=== PATIENT | male | born 1995 | race Caucasian/White ===

== ENCOUNTER 2020-04-20 19:09 | Emergency (ER) | payer OTHER ==
[2020-04-20] MEDS ORDERED: DIPHTH,PERTUSS(ACELL),TET 0.5 ML DISP.SYRIN IM ONE ×2 (19:21→19:55)
--- NOTE | 2020-04-20 19:27 | PDOC ---
Rapid Medical Evaluation Time Seen by Provider: 04/20/20 19:21 Medical Evaluation: 04/20/20 19:26 CC: sliced his 5th digit of rt hand, unknown last tdap, no other compliants Exam: rt 5th finger tip with lac FROM of finger Plan: FT Discharge Disposition - Diagnosis Finger laceration - Referrals - Patient Instructions - Post Discharge Activity
[2020-04-20 19:29] VITALS: BP 122/64; PULSE 78; TEMP 98.5; BMI 24.4
--- NOTE | 2020-04-20 19:54 | PDOC ---
History of Present Illness - General Chief Complaint: Injury Stated Complaint: FINGER LACERATION- RH Time Seen by Provider: 04/20/20 19:21 - History of Present Illness Initial Comments: 04/20/20 19:52 24-year-old male presents for evaluation of a laceration from a slicing machine which occurred last nightHe is not current on tetanus Past History - Medical History Allergies/Adverse Reactions: Allergies Allergy/AdvReac Type Severity Reaction Status Date / Time No Known Allergies Allergy Verified 04/20/20 19:26 COPD: No - Psycho-Social/Smoking History Smoking History: Never smoked - Substance Abuse Hx (Audit-C & DAST Scrn) How often the patient has a drink containing alcohol: Never Score: In Men: 4 or > Positive; In Women: 3 or > Positive: 0 Screen Result (Pos requires Nsg. Audit-10AR): Negative In the last yr the pt used illegal drug/Rx for NonMed reason: No Score: Yes response is considered Positive: 0 Screen Result (Positive result requires Nsg. DAST-10): Negative Review of Systems - Review of Systems Constitutional: No: Fever *Physical Exam - Vital Signs Last Vital Signs Temp Pulse Resp BP Pulse Ox 98.5 F 78 19 122/64 99 04/20/20 19:23 04/20/20 19:23 04/20/20 19:23 04/20/20 19:23 04/20/20 19:23 - Physical Exam 04/20/20 19:53 There is a small sudden subcentimeter laceration on the ulnar aspect of the tip of the left pinky edges are approximated and eschared over no gross sensorimotor deficits neurovascular intact Medical Decision Making - Medical Decision Making 04/20/20 19:53 Tetanus updated edges held down with a small Steri-Strip. Wound care with soap and water and left open to air avoiding ointments. Follow-up with orthopedic hand surgery. I have reviewed the pathophysiology with the patient. They are in agreement with the treatment plan all questions were answered to their satisfaction. Understanding for follow-up without fail was also conveyed to the patient. Again they are in agreement. Discharge - Discharge Information Problems reviewed: Yes Clinical Impression/Diagnosis: Finger laceration Condition: Stable Disposition: HOME - Admission No - Follow up/Referral Referrals: Newton Fernando MD [Staff Physician] - - Patient Discharge Instructions Additional Instructions: Return to the emergency room for further issues. Your tetanus was updated today. Tylenol and Motrin as directed for discomfort. Please keep the area clean and dry. You may wash it with soap and water and leave it open to air. Do not apply any ointment such as bacitracin or Neosporin. If you have to work you may cover the area with a dry sterile dressing such as a Band-Aid. Without fail follow-up with orthopedic hand surgery in 1 to 2 days for further evaluation and treatment options. - Post Discharge Activity
== END 2020-04-20 21:03 | disposition home or self-care (01) ==
LOC: JER 19:09 → JERFT 19:09
PROC: 3E0234Z Introduction of Serum, Toxoid and Vaccine into Muscle, Percutaneous Approach (ICD-10-PCS; principal; 2020-04-20)
DX: S61.217A Laceration without foreign body of left little finger without damage to nail, initial encounter (principal)
CPT/HCPCS: 90715; 99284-25

== ENCOUNTER 2023-05-10 05:45 | Emergency (ER) | payer OTHER ==
[2023-05-10 05:55] VITALS: BP 103/68; PULSE 79; RESP 20; TEMP 97.6; BMI 21.2
[2023-05-10] MEDS ORDERED: LIDOCAINE 4% PATCH TP ONE ×2 (06:23→06:30)
[2023-05-10] MEDS ORDERED: IBUPROFEN 400 MG TABLET (FP) PO ONE ×2 (06:23→06:29)
== END 2023-05-10 06:54 | disposition home or self-care (01) ==
LOC: JER 05:45
DX: M54.6 Pain in thoracic spine (principal); M54.2 Cervicalgia; V49.50XA Passenger injured in collision with unspecified motor vehicles in traffic accident, initial encounter; Y92.410 Unspecified street and highway as the place of occurrence of the external cause
CPT/HCPCS: 99283-25

== ENCOUNTER 2023-05-12 05:21 | Emergency (ER) | payer OTHER ==
[2023-05-12 05:40] VITALS: BP 121/80; PULSE 71; RESP 18; TEMP 98; BMI 22.8
[2023-05-12] MEDS ORDERED: KETOROLAC TROMETHAMINE 30 MG/1 ML VIAL IM ONE (05:59)
[2023-05-12] MEDS ORDERED: ACETAMINOPHEN 500 MG TABLET (FP) PO ONE (05:59)
[2023-05-12] MEDS ORDERED: LIDOCAINE 5% TOPICAL PATCH TP ONE (05:59)
[2023-05-12] MEDS ORDERED: KETOROLAC TROMETHAMINE 30 MG/1 ML VIAL ONE (06:02)
[2023-05-12] MEDS ORDERED: LIDOCAINE 4% PATCH TP ONE (06:02)
[2023-05-12] MEDS ORDERED: ACETAMINOPHEN 325 MG TABLET (FP) ONE (06:02)
[2023-05-12] MEDS ORDERED: LIDOCAINE PATCH REMOVAL MC ONE (18:00)
== END 2023-05-12 09:42 | disposition home or self-care (01) ==
LOC: JER 05:21
PROC: 3E0233Z Introduction of Anti-inflammatory into Muscle, Percutaneous Approach (ICD-10-PCS; principal; 2023-05-12)
DX: M54.2 Cervicalgia (principal); M54.9 Dorsalgia, unspecified; V49.50XA Passenger injured in collision with unspecified motor vehicles in traffic accident, initial encounter
CPT/HCPCS: 71046-TC-FY; 99284-25